=== PATIENT | male | born 1940 | race American Indian/Alaskan Native ===

== ENCOUNTER 2017-04-13 09:11 | Emergency (ER) | payer MEDICARE ==
[2017-04-13 09:44] LABS: Basophils % (Auto) 0.3 % (0.0-1.8); Eosinophils % (Auto) 1.7 % (0.0-4.3); Hematocrit 43.7 % (35.5-45.6); Hemoglobin 14.2 gm/dl (11.8-15.2); Mean Corpuscular HGB Conc 33 % (32-34); Mean Corpuscular Hemoglobin 28 pg (28-32); Mean Corpuscular Volume 87 fl (84-94); Platelet Count 162 K/mm3 (140-440); White Blood Count 7.3 K/mm3 (4.5-11.0)
[2017-04-13 09:54] LABS: Albumin 3.8 g/dL (3.9-5); Albumin/Globulin Ratio 1.4 %; Alkaline Phosphatase 40 units/L (35-129); Anion Gap 17 mmol/L; BUN/Creatinine Ratio 14.54; Blood Urea Nitrogen 16 mg/dL (9-20); Calcium 8.8 mg/dL (8.4-10.2); Carbon Dioxide 26 mmol/L (22-30); Chloride 103.3 mmol/L (98-107); Glucose 102 mg/dL (75-100); Lipase 36 units/L (13-60); Potassium 3.9 mmol/L (3.6-5.0); Sodium 142 mmol/L (137-145); Total Protein 6.6 g/dL (6.3-8.2)
[2017-04-13 09:58] LABS: Alanine Aminotransferase < 5 units/L (7-56)
--- NOTE | 2017-04-13 12:08 | Emergency Department Report ---
ED Male HPI - General Chief complaint: Urogenital-Male Stated complaint: LOWER BACK PAIN - DIFFICULTY URINATING Time Seen by Provider: 04/13/17 11:57 Source: patient Mode of arrival: Ambulatory Limitations: No Limitations - History of Present Illness Initial comments: Patient is 76-year-old male with history of dementia and other medical problem brought by his was a chief complaint of difficulty urination has been going on for 3 days. Patient denied any fever nausea or vomiting no other complaints. MD Complaint: dysuria -: Gradual denies other symptoms - Related Data Previous Rx's Medication Instructions Recorded Last Taken Type Levofloxacin [Levaquin TAB] 750 mg PO QDAY #7 tablet 03/30/15 Unknown Rx Allergies Allergy/AdvReac Type Severity Reaction Status Date / Time morphine Allergy Unknown Verified 03/30/15 13:00 ED Review of Systems ROS: Stated complaint: LOWER BACK PAIN - DIFFICULTY URINATING Other details as noted in HPI Comment: All other systems reviewed and negative Constitutional: denies: chills, fever Respiratory: denies: cough, shortness of breath Cardiovascular: denies: chest pain Gastrointestinal: denies: abdominal pain, nausea, vomiting Genitourinary: urgency, dysuria, frequency. denies: hematuria, testicular pain , testicular mass Skin: denies: rash Neurological: denies: headache, weakness ED Past Medical Hx - Past Medical History Hx GERD: Yes Hx Psychiatric Treatment: Yes (DEPRESSION) Hx Dementia: Yes Additional medical history: DUODENAL ULCERS - Surgical History Additional Surgical History: HERNIA REPAIR - Social History Smoking Status: Never Smoker Substance Use Type: None - Medications Home Medications: Home Medications Medication Instructions Recorded Confirmed Last Taken Type Levofloxacin [Levaquin TAB] 750 mg PO QDAY #7 tablet 03/30/15 Unknown Rx ED Physical Exam - General Limitations: No Limitations General appearance: alert, in no apparent distress - Eye Eye exam: Present: normal appearance - ENT ENT exam: Present: normal exam - Neck Neck exam: Present: normal inspection - Respiratory Respiratory exam: Present: normal lung sounds bilaterally. Absent: respiratory distress, wheezes, rales, rhonchi - Cardiovascular Cardiovascular Exam: Present: regular rate, normal rhythm, normal heart sounds - GI/Abdominal GI/Abdominal exam: Present: soft, normal bowel sounds. Absent: distended, tenderness, guarding, rebound, rigid, organomegaly, mass, bruit, pulsatile mass , hernia - Extremities Exam Extremities exam: Present: normal inspection - Back Exam Back exam: Present: normal inspection. Absent: CVA tenderness (R), CVA tenderness (L), muscle spasm, paraspinal tenderness, vertebral tenderness - Neurological Exam Neurological exam: Present: alert, oriented X3, CN II-XII intact, normal gait - Skin Skin exam: Present: warm, intact, normal color ED Course Vital Signs 04/13/17 04/13/17 09:19 12:32 Temperature 98 F 98.3 F Pulse Rate 97 H 67 Respiratory 18 14 Rate Blood Pressure 114/74 Blood Pressure 156/82 [Right] O2 Sat by Pulse 96 100 Oximetry - Reevaluation(s) Reevaluation #1: 04/13/17 12:07 Patient had a Posey catheter placed with only 400 mL urine output so far. ED Medical Decision Making - Lab Data Result diagrams: 04/13/17 09:25 04/13/17 09:25 - Medical Decision Making Patient stated that he is feeling better he want to go home. I don't believe the patient has a urinary retention I think is his BPH is getting worse. stated that he will always a urologist at the [facility] and they planning to see him next week. Critical care attestation.: If time is entered above; I have spent that time in minutes in the direct care of this critically ill patient, excluding procedure time. ED Disposition Clinical Impression: Dysuria Disposition: DC-01 TO HOME OR SELFCARE Is pt being admited?: No Does the pt Need Aspirin: No Condition: Stable Instructions: Benign Prostatic Hypertrophy (ED) Referrals: DREW PATEL MD [Other] - 3-5 Days
[2017-04-13 12:35] LABS: Bilirubin,Urine NEG (Negative); Blood,Urine NEG (Negative); Ketones,Urine TR mg/dL (Negative); Leukocyte Esterase,Urine NEG (Negative); Mucus,Urine FEW /HPF; Nitrite,Urine NEG (Negative)
[2017-04-13 13:54] VITALS: BP 154/73
== END 2017-04-13 13:54 | disposition home or self-care (01) ==
LOC: ED 09:11
DX: R30.0 Dysuria (principal); K21.9 Gastro-esophageal reflux disease without esophagitis; F32.9 Major depressive disorder, single episode, unspecified; Z88.5 Allergy status to narcotic agent
CPT/HCPCS: 36415; 51702; 80053; 81001; 83690; 85025; 99283